=== PATIENT | male | born 1970 | race Caucasian/White ===

== ENCOUNTER → 2017-09-14 | Outpatient (CLI) | payer OTHER ==
[~2017-09-14] MED LIST: ECHI1CAP PO
[2017-09-14 12:36] LABS: BASO % 0.8 %; BASO ABS # 0.04 K/uL (0-0.2); EOS ABS # 0.16 K/uL (0-0.5); HEMATOCRIT 44.7 % (42-52); HEMOGLOBIN 15.2 g/dL (14.0-18.0); IG# 0.02 K/uL (0.00-0.02); LYMPH % 32.6 %; LYMPH ABS # 1.72 K/uL (1.2-3.4); MEAN CELL VOLUME 93.7 fL (80-100); MEAN CORPUSCULAR HEMOGLOBIN 31.9 pg (25-34); MEAN PLATELET VOLUME 9.8 fL (7.4-10.4); MONO % 11.8 %; MONO ABS # 0.62 K/uL (0.11-0.59); NEUT % 51.4 %; NEUT ABS # 2.71 K/uL (1.4-6.5); PLATELET COUNT 221 K/uL (130-400); RED CELL DISTRIBUTION WIDTH CV 12.6 % (11.5-14.5); RED CELL DISTRIBUTION WIDTH SD 43.2 fL (36.4-46.3); WHITE BLOOD COUNT 5.27 K/uL (4.8-10.8)
[2017-09-14 13:10] LABS: BLOOD UREA NITROGEN 14 mg/dl (7-18); GLUCOSE 87 mg/dl (70-99)
[2017-09-14 13:11] LABS: ALBUMIN 4.1 gm/dl (3.4-5.0); ALT/SGPT 34 U/L (12-78); CALCIUM 8.7 mg/dl (8.5-10.1); CARBON DIOXIDE 27 mmol/L (21-32); CHOLESTEROL 184 mg/dl (0-200); POTASSIUM 4.2 mmol/L (3.5-5.1); SODIUM 137 mmol/L (136-145)
[2017-09-14 13:20] LABS: ALKALINE PHOSPHATASE 57 U/L (45-117); AST/SGOT 21 U/L (15-37); LDL CHOLESTEROL CALCULATED 115 mg/dl; TOTAL PROTEIN 7.8 gm/dl (6.4-8.2)
== END | disposition home or self-care (01) ==
LOC: C.LABBFT 10:44
PROVIDERS: ATTEND Physician Assistant Medical
DX: R06.02 Shortness of breath (principal); E66.01 Morbid (severe) obesity due to excess calories

== ENCOUNTER → 2017-09-23 | Outpatient (CLI) | payer OTHER ==
--- NOTE | 2017-09-23 10:57 | DIAGNOSTIC IMAGING REPORT ---
ABDOMEN ULTRASOUND FOR HERNIA CLINICAL HISTORY: R06.02 Shortness of breath on [id number]. Umbilical lump. COMPARISON STUDY: None. FINDINGS: Real-time sonographic imaging of the umbilicus was performed. There is a fat-containing umbilical hernia. The neck of the hernia measures 1.5 cm. The hernia sac measures up to 3 cm. This is only partially reducible. IMPRESSION: Partially reducible fat-containing umbilical hernia described above. Electronically signed by: Porfirio Moody M.D. 09/23/2017 10:55 AM Dictated Date/Time: 09/23/2017 10:54 AM
--- NOTE | 2017-09-23 11:08 | DIAGNOSTIC IMAGING REPORT ---
CHEST 2 VIEWS ROUTINE CLINICAL HISTORY: R06.02 Shortness of breath on [id number] COMPARISON STUDY: No previous studies for comparison. FINDINGS: The heart is mildly enlarged. There is no failure. There is no focal pulmonary consolidation. There are no pleural effusions.[ IMPRESSION: Mild cardiomegaly. No evidence of focal pulmonary consolidation. Electronically signed by: Elia Salazar M.D. 09/23/2017 11:06 AM Dictated Date/Time: 09/23/2017 11:06 AM
== END | disposition home or self-care (01) ==
LOC: C.ULTR 10:14
PROVIDERS: ATTEND Internal Medicine
DX: R06.02 Shortness of breath (principal); K42.9 Umbilical hernia without obstruction or gangrene